=== PATIENT | female | born 1975 | race Asian ===

== ENCOUNTER 2018-01-15 05:26 | Day surgery (SDC) | payer MEDICAID ==
[2018-01-12 16:58] LABS: BASOPHILS % (AUTO) 0.2 % (0-1); EOSINOPHILS # (AUTO) 0.1 X10'3 (0-0.9); EOSINOPHILS % (AUTO) 2.1 % (0-6); LYMPHOCYTES # (AUTO) 1.2 X10'3 (1.1-4.8); LYMPHOCYTES % (AUTO) 26.4 % (21-51); MEAN CORPUSCULAR HEMOGLOBIN 17.4 PG (27.0-31.0); MEAN CORPUSCULAR HGB CONC 30.5 % (33.0-36.5); MEAN PLATELET VOLUME 8.7 FL (7.4-10.4); MONOCYTES # (AUTO) 0.2 X10'3 (0-0.9); NEUTROPHILS # (AUTO) 2.9 X10'3 (1.8-7.7); NEUTROPHILS % (AUTO) 66.3 % (42-75); PRE OP HEMATOCRIT 22.8 % (35.0-45.0); PRE OP PLATELET COUNT 266 X10'3 (140-440); RED CELL DISTRIBUTION WIDTH 20.5 % (11.5-14.5)
[2018-01-12 17:13] LABS: ALBUMIN 3.4 G/DL (3.4-5.0); ALBUMIN/GLOBULIN RATIO 0.9 (1.1-1.5); ALKALINE PHOSPHATASE 73 IU/L (46-116); BLOOD UREA NITROGEN 13 MG/DL (7-18); CALCIUM 8.3 MG/DL (8.5-10.1); CHLORIDE 108 MMOL/L (99-107); CREATININE 0.62 MG/DL (0.40-0.90); PRE OP ALT 18 U/L (30-65); PRE OP ANION GAP 8 (8-16); PRE OP AST 16 U/L (10-37); PRE OP BILIRUB, TOTAL 0.3 MG/DL (0.0-1.0); PRE OP GLUCOSE 96 MG/DL (70-104); PRE OP POTASSIUM 3.8 MMOL/L (3.4-5.1); PRE OP SODIUM 142 MMOL/L (135-145); TOTAL CARBON DIOXIDE 26.2 MMOL/L (24-32); TOTAL PROTEIN 7.4 G/DL (6.4-8.2); eGFR > 90 ML/MIN
[2018-01-12 17:24] LABS: PRE OP PROTIME 10.6 SECONDS (9.0-12.0)
[2018-01-12 17:27] LABS: PLATELET ESTIMATE NORMAL
[2018-01-12 17:28] LABS: HYPOCHROMASIA 1+
[2018-01-12 17:29] LABS: HCG SERUM QL NEGATIVE; POLYCHROMASIA FEW
[2018-01-12 17:30] LABS: POIKILOCYTOSIS 1+
[2018-01-12 17:31] LABS: ANISOCYTOSIS 2+; MICROCYTOSIS 3+
[2018-01-12 17:32] LABS: ELLIPTOCYTES 1+
[2018-01-12 17:33] LABS: SCHISTOCYTES 1+
[2018-01-12 17:35] LABS: TEAR DROP CELLS 1+
[2018-01-15] VITALS (22 sets, daily range): BP systolic 88–126; BP diastolic 51–76
[~2018-01-15] VITALS: Ht 157.5 cm; Wt 62.6 kg
[~2018-01-15 05:26] MED LIST: NO HOME MEDS
[2018-01-15] MEDS ORDERED: cefoxitin sod inj 2,000 MG in dextrose 5%-water 100 ML IV ONE (05:30)
[2018-01-15] MEDS ORDERED: famotidine 20mg tablet PO ONE (05:30)
[2018-01-15] MEDS ORDERED: LIDOcaine 1% (10mg/ml) 2ml vial ONE (06:06)
[2018-01-15] MEDS: ringers solution, lacted 1,000 ML IV SCH ×2 (07:03→22:11)
[2018-01-15] MEDS ORDERED: epiNEPHrine 1 mg/ml inj ONE (07:40)
[2018-01-15] MEDS ORDERED: BUPIVAcaine/PF 2.5mg/ml (0.25%) 10ml vial ONE (07:40)
[2018-01-15] MEDS ORDERED: neomy sulf/polymyxin B sulf. GU irrigation 1ml amp IR ONE (07:40)
[2018-01-15] MEDS ORDERED: clindamycin phosphate 40gm vag cream ONE (07:40)
[2018-01-15] MEDS ORDERED: vasoPRESSIN 20 units/ml inj. ONE (07:41)
[2018-01-15] MEDS ORDERED: ringers solution, lacted 1,000 ML IV SCH (08:26)
[2018-01-15] MEDS ORDERED: proCHLORperazine 10 MG/2 ml inj IV PRN (08:30)
[2018-01-15] MEDS ORDERED: morphine 4 MG/ML inj SYRINge IV PRN ×2 (08:30)
[2018-01-15] MEDS ORDERED: meperidine/PF 25mg/ml syringe IV PRN ×2 (08:30)
[2018-01-15] MEDS ORDERED: ondansetron/PF 4mg/2ml inj IV PRN ×2 (08:30→11:55)
[2018-01-15 09:33] LABS: BASOPHILS % (AUTO) 1.2 % (0-1); EOSINOPHILS # (AUTO) 0.1 X10'3 (0-0.9); EOSINOPHILS % (AUTO) 1.9 % (0-6); LYMPHOCYTES # (AUTO) 1.2 X10'3 (1.1-4.8); MEAN CORPUSCULAR HGB CONC 30.4 % (33.0-36.5); MEAN CORPUSCULAR VOLUME 62.7 FL (78-98); MEAN PLATELET VOLUME 8.3 FL (7.4-10.4); MONOCYTES # (AUTO) 0.3 X10'3 (0-0.9); MONOCYTES % (AUTO) 6.8 % (2-12); NEUTROPHILS # (AUTO) 2.4 X10'3 (1.8-7.7); NEUTROPHILS % (AUTO) 61.1 % (42-75); PRE OP HEMATOCRIT 28.3 % (35.0-45.0); PRE OP PLATELET COUNT 246 X10'3 (140-440); RED BLOOD COUNT 4.52 X10'6 (4.20-5.60); RED CELL DISTRIBUTION WIDTH 25.7 % (11.5-14.5)
[2018-01-15 09:35] LABS: PRE OP HEMOGLOBIN 8.6 g/dL (12.0-16.0)
[2018-01-15] MEDS ORDERED: rocuronium 10mg/ml inj IV ONE (09:46)
[2018-01-15] MEDS ORDERED: propofol inj 20 ML IV ONE (09:46)
[2018-01-15] MEDS ORDERED: fentaNYL /PF 50mcg/ml 5ml ampule ONE (09:46)
[2018-01-15] MEDS ORDERED: midazolam 2 mg/2 ml injection ONE (09:46)
[2018-01-15] MEDS ORDERED: ondansetron/PF 4mg/2ml inj ONE (11:47)
[2018-01-15] MEDS ORDERED: dexamethasone sod phosphate 4mg/ml inj. ONE (11:47)
[2018-01-15] MEDS ORDERED: LORazepam 2 mg/ml vial IV PRN (11:55)
[2018-01-15] MEDS ORDERED: metoclopramide 5 mg/ml inj IV PRN (11:55)
[2018-01-15] MEDS ORDERED: HYDROcodone/acetaminophen 10/325mg tab PO PRN ×2 (11:55)
[2018-01-15] MEDS ORDERED: normal saline 500ml IV soln 500 ML IV PRN (11:55)
[2018-01-15] MEDS ORDERED: temazepam 15mg capsule PO PRN (11:55)
[2018-01-15] MEDS ORDERED: diphenhydrAMINE 50 mg/ml inj IV PRN (11:55)
[2018-01-15] MEDS ORDERED: neostigmine methylsulfate 1 MG/ML 10ml vial ONE (11:56)
[2018-01-15] MEDS ORDERED: glycopyrrolate 0.2mg/ml inj ONE (11:56)
[2018-01-15] MEDS: meperidine/PF 25mg/ml syringe IV PRN ×2 (12:50→12:58)
[2018-01-15] MEDS: simethicone 80mg chew tab PO SCH ×2 (13:00→18:35)
[2018-01-15 14:27] LABS: ANISOCYTOSIS 3+; MICROCYTOSIS 2+; PLATELET ESTIMATE NORMAL; POIKILOCYTOSIS 2+
[2018-01-15 14:28] LABS: ELLIPTOCYTES 1+
[2018-01-15 14:29] LABS: TEAR DROP CELLS 1+
[2018-01-15 14:33] LABS: HYPOCHROMASIA 2+; POLYCHROMASIA 1+
[2018-01-15 14:34] LABS: ACANTHOCYTES FEW
[2018-01-15] MEDS: ketorolac trometh. 30mg/ml inj. IV PRN (14:53)
[2018-01-15] MEDS: docusate sod 100mg capsule PO SCH (20:19)
[2018-01-16] VITALS: BP 101/60
[2018-01-16 04:00] VITALS: BP 90/52
[2018-01-16 05:37] LABS: BASOPHILS % (AUTO) 0.1 % (0-1); EOSINOPHILS # (AUTO) 0.1 X10'3 (0-0.9); EOSINOPHILS % (AUTO) 1.3 % (0-6); HEMATOCRIT 26.3 % (35.0-45.0); HEMOGLOBIN 8.2 g/dl (12.0-16.0); LYMPHOCYTES # (AUTO) 0.6 X10'3 (1.1-4.8); LYMPHOCYTES % (AUTO) 6.5 % (21-51); MEAN CORPUSCULAR HEMOGLOBIN 19.3 PG (27.0-31.0); MEAN CORPUSCULAR HGB CONC 31.2 % (33.0-36.5); MEAN CORPUSCULAR VOLUME 61.8 FL (78-98); MEAN PLATELET VOLUME 8.8 FL (7.4-10.4); MONOCYTES # (AUTO) 0.5 X10'3 (0-0.9); MONOCYTES % (AUTO) 5.1 % (2-12); NEUTROPHILS # (AUTO) 7.8 X10'3 (1.8-7.7); PLATELET COUNT 242 X10'3 (140-440); RED BLOOD COUNT 4.25 X10'6 (4.20-5.60); RED CELL DISTRIBUTION WIDTH 25.2 % (11.5-14.5)
[2018-01-16 06:02] LABS: ALBUMIN 2.8 G/DL (3.4-5.0); ANION GAP 9 (8-16); BLOOD UREA NITROGEN 13 MG/DL (7-18); BUN/CREATININE RATIO 17.6 (6.6-38.0); CALCIUM 8.1 MG/DL (8.5-10.1); CHLORIDE 107 MMOL/L (99-107); CREATININE 0.74 MG/DL (0.40-0.90); GLUCOSE 94 MG/DL (70-104); POTASSIUM 3.5 MMOL/L (3.5-5.1); SODIUM 141 MMOL/L (135-145); TOTAL CARBON DIOXIDE 24.7 MMOL/L (24-32); eGFR 85 ML/MIN
[2018-01-16 06:40] LABS: ANISOCYTOSIS 3+; ELLIPTOCYTES 1+; HYPOCHROMASIA 1+; MICROCYTOSIS 2+; PLATELET ESTIMATE NORMAL
[2018-01-16 07:30] VITALS: BP 85/57
[2018-01-16] MEDS ORDERED: enoxaparin 40mg/0.4ml syringe SQ SCH (08:00)
[2018-01-16] MEDS: docusate sod 100mg capsule PO SCH (08:49)
[2018-01-16] MEDS: simethicone 80mg chew tab PO SCH ×2 (08:49→13:41)
[2018-01-16 09:00] VITALS: BP 95/58
[2018-01-16] MEDS: ketorolac trometh. 30mg/ml inj. IV PRN (09:00)
[2018-01-16 11:46] VITALS: BP 90/36
== END 2018-01-16 14:36 | disposition home or self-care (01) ==
LOC: PAS 05:26 → SUR 3N 13:13 → PAS 01-16 14:36
PROVIDERS: ATTEND Obstetrics & Gynecology Obstetrics
DX: D25.0 Submucous leiomyoma of uterus (principal); N83.11 Corpus luteum cyst of right ovary; N80.0 Endometriosis of uterus; Z90.49 Acquired absence of other specified parts of digestive tract; Z79.1 Long term (current) use of non-steroidal anti-inflammatories (NSAID); Z79.891 Long term (current) use of opiate analgesic; Z86.2 Personal history of diseases of the blood and blood-forming organs and certain disorders involving the immune mechanism; Z79.899 Other long term (current) drug therapy
CPT/HCPCS: 36415; 58552; 58662; 71046; 80048; 80053; 84703; 85025; 85610; 85730; 86885; 86900; 86901; 86920; 93005; A4315; J0171; J0694; J1100; J1650; J1885; J2175; J2250; J2405; J2704; J2710; J3010; J3490; J7030; J7060; J7120; P9016; A7000